=== PATIENT | male | born 1975 | race Caucasian/White ===

== ENCOUNTER 2017-08-16 19:05 | Emergency (ER) | payer BC ==
[2017-08-16] MEDS ORDERED: Lidocaine 1% 20 ML MDV INJECT ONE (19:29)
[2017-08-16] MEDS ORDERED: Diphtheria,Pertussis(Acell),Tetanus Vaccine 0.5 ML Syringe IM ONE (19:29)
[2017-08-16] MEDS ORDERED: Bacitracin Oint 1 GM U/D Packet TOP ONE (19:30)
--- NOTE | 2017-08-16 19:40 | EDM.PDOC ---
ED HPI GENERAL MEDICAL PROBLEM - General Chief Complaint: Laceration Stated Complaint: LACERATION RT MIDDLE FINGER Time Seen by Provider: 08/16/17 19:22 Source of Information: Reports: Patient History Limitations: Reports: No Limitations - History of Present Illness INITIAL COMMENTS - FREE TEXT/NARRATIVE: HISTORY AND PHYSICAL: History of present illness: Patient is a 42-year-old male who presents to the emergency room today with complaints of a laceration over the middle finger on the right hand across the MCP joint. States he was pulling a Nicho jar out of the garbage can when the glass broke, resulting in a laceration. Patient is able to grasp tightly but is unable to fully extend the affected finger. Bleeding is managed with light pressure. Unsure of last tetanus vaccine. Review of systems: As per history of present illness and below otherwise all systems reviewed and negative. Past medical history: As per history of present illness and as reviewed below otherwise noncontributory. Surgical history: As per history of present illness and as reviewed below otherwise noncontributory. Social history: No reported history of drug or alcohol abuse. Family history: As per history of present illness and as reviewed below otherwise noncontributory. Physical exam: Gen.: Well-developed and well-nourished 42-year-old male. Alert and oriented. Nontoxic and in no acute distress. HEENT: Atraumatic, normocephalic, pupils reactive, negative for conjunctival pallor or scleral icterus, mucous membranes moist, throat clear, neck supple, nontender, trachea midline. Lungs: Clear to auscultation, breath sounds equal bilaterally, chest nontender. Heart: S1S2, regular, negative for clicks, rubs, or JVD. Abdomen: Soft, nondistended, nontender. Negative for masses or hepatosplenomegaly. Negative for costovertebral tenderness. Pelvis: Stable nontender. Genitourinary: Deferred. Rectal: Deferred. Extremities: Moves all digits of the affected hand. Able to grasp tightly. Has limited extension of the right middle finger, does appear to have flexor tendon injury. Capillary refill less than 3 seconds. Sensation. Denies any numbness or tingling. Strong radial pulse.. Neurovascular unremarkable. Skin: 1.5 cm laceration across the MCP joint of the right third digit. Neuro: Awake, alert, oriented. Cranial nerves II through XII unremarkable. Cerebellum unremarkable. Motor and sensory unremarkable throughout. Exam nonfocal. Currently we do not have a hand surgeon on-call at our facility, will be available tomorrow. Dr. Oneill, hand surgeon, from [facility] in [place] was consulted. He was explained the patient's case and recommends that the wound be sutured closed. Recommends a cast extending from fingers past the wrist. Will place the patient on Keflex and given pain medication. Suggests close follow-up with Dr. Tabor tomorrow. He states he would be happy to see the patient if he is unable to get an appoint, at at a reasonable time. Area was thoroughly irrigated with sterile normal saline and cleansed with chlorhexidine. X-ray shows no foreign objects/glass in the wound. As appear to be tendon sheath laceration. The area was anesthetized with lidocaine 1% into the wound. 5 interrupted sutures were placed using 3-0 nylon. Patient tolerated well. Bacitracin and nonstick dressing applied. Short hand splint, fingertip to above the wrist, was placed. Wound care instructions provided, along with signs and symptoms that would prompt him to come back to the emergency room. For stronger pain medication. He states he'll be fine with Tylenol and/or ibuprofen. Informed patient he needs to call to set up an appointment tomorrow. Patient voices understanding and is agreeable to plan of care. Diagnostics: X-ray Therapeutics: Tdap, lidocaine, bacitracin dressing, splint Impression: Laceration involving the flexor tendon Plan: 1. Please keep the wound clean and dry. A splint has been applied to prevent further injury. 2. Please take the Keflex as prescribed to prevent infection. 3. Tylenol and/or ibuprofen as needed for pain management. Rest, ice, elevate the extremity. 4. As we discussed you need to follow-up with Dr. Bryanna Tabor in the next 1-2 days. If you're unable to get a timely appointment he may follow up with Dr. Flores at [facility] in [place]. He is also a hand surgeon that has agreed to see you. 5. Return to the ED as needed and as discussed. ` Definitive disposition and diagnosis as appropriate pending reevaluation and review of above. Onset: Today Duration: Minutes: Location: Reports: Upper Extremity, Right right middle finger Pain Score (Numeric/FACES): 3 - Related Data Allergies Allergy/AdvReac Type Severity Reaction Status Date / Time No Known Allergies Allergy Verified 08/16/17 19:21 Home Meds: Home Meds . [No Known Home Meds] 08/16/17 [History] Past Medical History - Past Health History Medical/Surgical History: Denies Medical/Surgical History Social & Family History - Family History Family Medical History: Noncontributory - Tobacco Use Smoking Status *Q: Never Smoker - Recreational Drug Use Recreational Drug Use: No ED ROS GENERAL - Review of Systems Review Of Systems: ROS reveals no pertinent complaints other than HPI. ED EXAM, SKIN/RASH Exam: See Below (See dictation) ED SKIN PROCEDURES - Laceration/Wound Repair Right Finger Lac/Wound length In cm: 1.5 Appearance: Clean Distal NVT: Other (Flexor tendon involvement) Anesthetic Type: Local Local Anesthesia - Lidocaine (Xylocaine): 1% Plain Local Anesthetic Volume: 4cc Skin Prep: Chlorhexidine (Hibiciens), Saline, Sterile Drape Saline Irrigation (cc's): 100 Exploration/Debridement/Repair: Wound Explored, Explored to Base, No Foreign Material Found Closed with: Sutures Suture Size: 3-0 # of Sutures: 5 Suture Type: Nylon Course - Vital Signs Last Recorded V/S: Last Vital Signs Temp 97.2 F 08/16/17 19:22 Pulse 74 08/16/17 19:22 Resp 18 08/16/17 19:22 BP 140/96 H 08/16/17 19:22 Pulse Ox 97 08/16/17 19:22 - Orders/Labs/Meds Orders: Active Orders 24 hr Category Date Time Status Vaccines to be Administered [RC] PER UNIT ROUTINE Care 08/16/17 19:30 Active Fingers Multiple Rt [CR] Stat Exams 08/16/17 19:32 Stop Req Fingers Third Digit Rt F7 [CR] Stat Exams 08/16/17 19:40 Taken Meds: Medications Discontinued Medications Generic Name Dose Route Start Last Admin Trade Name Freq PRN Reason Stop Dose Admin Bacitracin 1 dose 08/16/17 19:30 Bacitracin Oint 1 Gm TOP 08/16/17 19:31 ONETIME ONE Diphtheria/Tetanus/Acell Pertussis 0.5 ml 08/16/17 19:29 Adacel IM 08/16/17 19:30 .ONCE ONE Lidocaine HCl 20 ml 08/16/17 19:29 Xylocaine 1% INJECT 08/16/17 19:30 ONETIME ONE Departure - Departure Time of Disposition: 20:17 Disposition: Home, Self-Care 01 Clinical Impression: Flexor tendon laceration, finger, open wound Qualifiers: Encounter type: initial encounter Qualified Code(s): S56.129A - Laceration of flexor muscle, fascia and tendon of unspecified finger at forearm level, initial encounter; S61.209A - Unspecified open wound of unspecified finger without damage to nail, initial encounter; S61.209A - Unspecified open wound of unspecified finger without damage to nail, initial encounter - Discharge Information Referrals: Bryanna Tabor MD [Physician] - 1 Day (Flexor tendon laceration) Forms: ED Department Discharge Additional Instructions: My general discharge The following information is given to patients seen in the emergency department who are being discharged to home. This information is to outline your options for follow-up care. We provide all patients seen in our emergency department with a follow-up referral. The need for follow-up, as well as the timing and circumstances, are variable depending upon the specifics of your emergency department visit. If you don't have a primary care physician on staff, we will provide you with a referral. We always advise you to contact your personal physician following an emergency department visit to inform them of the circumstance of the visit and for follow-up with them and/or the need for any referrals to a consulting specialist. The emergency department will also refer you to a specialist when appropriate. This referral assures that you have the opportunity for follow-up care with a specialist. All of these measure are taken in an effort to provide you with optimal care, which includes your follow-up. Under all circumstances we always encourage you to contact your private physician who remains a resource for coordinating your care. When calling for follow-up care, please make the office aware that this follow-up is from your recent emergency room visit. If for any reason you are refused follow-up, please contact the [facility] Emergency Department at and asked to speak to the emergency department charge nurse. [facility] Specialty Care - Plastic Surgery Professional Building [address] [place] [address], [address] [place] [address] 1. Please keep the wound clean and dry. A splint has been applied to prevent further injury. 2. Please take the Keflex as prescribed to prevent infection. 3. Tylenol and/or ibuprofen as needed for pain management. Rest, ice, elevate the extremity. 4. As we discussed you need to follow-up with Dr. Bryanna Tabor in the next 1-2 days. If you're unable to get a timely appointment he may follow up with Dr. Flores at [facility] in [place]. He is also a hand surgeon that has agreed to see you. 5. Return to the ED as needed and as discussed. ` - My Orders Last 24 Hours: My Active Orders 08/16/17 19:30 Vaccines to be Administered [RC] PER UNIT ROUTINE 08/16/17 19:32 Fingers Multiple Rt [CR] Stat 08/16/17 19:40 Fingers Third Digit Rt F7 [CR] Stat - Assessment/Plan Last 24 Hours: My Active Orders 08/16/17 19:30 Vaccines to be Administered [RC] PER UNIT ROUTINE 08/16/17 19:32 Fingers Multiple Rt [CR] Stat 08/16/17 19:40 Fingers Third Digit Rt F7 [CR] Stat
--- NOTE | 2017-08-17 16:41 | CR ---
EXAM DATE: 08/16/17 PATIENT'S AGE: 42 Patient: ALEKSANDER JOHNSTON Facility: [place], [place] Site . Site : [id number] Study: XRay Extremity Right R finger [id number] 8:00:25 PM Ordering Physician: Doctor Cheung Final Report: INDICATION: Laceration injury to 3rd digit, glass jar TECHNIQUE: Finger radiographs 3 views COMPARISON: None FINDINGS: Bones: Alignment is normal. No acute fractures or aggressive bone lesions are identified. Joint spaces: The metacarpophalangeal and interphalangeal joints are normal in appearance. Soft tissues: Unremarkable. No radiopaque foreign bodies are noted. IMPRESSION: 1. No acute osseous injuries are identified. No radiopaque soft tissue foreign body identified. Dictated by Hilton Dunlap MD @ 08/16/2017 8:33:43 PM Dictated by: Hilton Dunlap MD @ 08/16/2017 20:34:16 (Electronic Signature) Report Signed by Proxy. [facility]
== END 2017-08-16 20:45 | disposition home or self-care (01) ==
LOC: MW.ED 19:05
DX: S66.122A Laceration of flexor muscle, fascia and tendon of right middle finger at wrist and hand level, initial encounter (principal); W25.XXXA Contact with sharp glass, initial encounter; Z23 Encounter for immunization
CPT/HCPCS: 12001; 73140-26-F7; 73140-F7; 90471; 90715; 99283-25; 99284

== ENCOUNTER 2024-01-04 09:12 | Emergency (ER) | payer BC ==
[2024-01-04 09:35] LABS: BASOPHILS ABSOLUTE AUTO 0.04 K/uL (0.00-0.20); BASOPHILS PERCENT AUTO 0.5 % (0.0-1.0); EOSINOPHILS ABSOLUTE AUTO 0.06 K/uL (0.00-0.45); EOSINOPHILS PERCENT AUTO 0.7 % (0.0-6.0); HEMATOCRIT 48.1 % (42.0-52.0); HEMOGLOBIN 16.5 g/dL (14.0-18.0); IMMATURE GRAN ABSOLUTE AUTO 0.02 K/uL (0.00-0.05); IMMATURE GRAN PERCENT AUTO 0.2 % (0.0-0.4); LYMPHOCYTES ABSOLUTE AUTO 2.75 K/uL (1.00-4.80); LYMPHOCYTES PERCENT AUTO 31.2 % (24.0-44.0); MEAN CORPUSCULAR HGB CONC 34.3 g/dL (32.0-36.0); MEAN CORPUSCULAR VOLUME 78.7 fL (83.0-99.0); MEAN PLATELET VOLUME 9.1 fL (9.4-12.4); MONOCYTES ABSOLUTE AUTO 0.59 K/uL (0.00-0.80); MONOCYTES PERCENT AUTO 6.7 % (0.0-8.0); NEUTROPHILS ABSOLUTE AUTO 5.35 K/uL (1.80-7.70); NEUTROPHILS PERCENT AUTO 60.7 % (41.0-71.0); PLATELET COUNT,PLT 261 K/uL (150-400); RED BLOOD CELL COUNT 6.11 M/uL (4.52-5.90); WHITE BLOOD CELL COUNT,WBC 8.81 K/uL (3.9-11.3)
[2024-01-04] MEDS: Sodium Chloride 0.9% 10 ML Syringe FLUSH PRN (09:39)
[2024-01-04] MEDS: Sodium Chloride 0.9% 2.5 ML Syringe FLUSH PRN (09:40)
[2024-01-04 10:07] LABS: A/G RATIO 1.1 (0.9-1.6); ALANINE AMINOTRANSFERASE,ALT 44 IU/L (14-63); ALBUMIN 4.1 g/dL (3.4-5.0); ALKALINE PHOSPHATASE 63 U/L (46-116); ASPARTATE AMNIOTRANSFERASE,AST 37 IU/L (15-37); BILIRUBIN TOTAL 0.7 mg/dL (0.2-1.0); BLOOD UREA NITROGEN,BUN 13 mg/dL (7.0-18.0); CALCIUM 8.9 mg/dL (8.5-10.1); CARBON DIOXIDE,CO2 25.9 mmol/L (21.0-32.0); CHLORIDE,CL 100 mmol/L (98-107); CREATINE KINASE,CK 975 U/L (26-308); CREATININE 1.3 mg/dL (0.8-1.3); EST CRCL DRUG DOSING (CG) 75.62 mL/min; ETHANOL BLOOD MEDICAL <3 mg/dL; GLUCOSE RANDOM 107 mg/dL (74-106); LIPASE 26 U/L (16-77); POTASSIUM,K 4.1 mmol/L (3.5-5.1); PROTEIN TOTAL,TP 7.8 g/dL (6.4-8.2); SODIUM,NA 137 mmol/L (136-148); TSH ULTRASENSITIVE 1.58 uIU/mL (0.36-3.74)
[2024-01-04 10:09] LABS: ESTIMATED GFR 69 mL/min (>60)
[2024-01-04 10:21] LABS: LACTIC ACID 1.1 mmol/L (0.4-2.0)
[2024-01-04 10:32] LABS: CORONAVIRUS COVID-19 NAA NEGATIVE (NEGATIVE); INFLUENZA A NAA NEGATIVE (NEGATIVE); INFLUENZA B NAA NEGATIVE (NEGATIVE); RESPIRATORY SYNCYTIAL VIR NAA NEGATIVE (NEGATIVE)
[2024-01-04] MEDS: Iopamidol 755 MG/ML 500 ML Multipack Bottle IVPUSH STA (11:11)
[2024-01-04 12:03] LABS: APPEARANCE,URINE CLEAR; BILIRUBIN,URINE NEGATIVE (NEGATIVE); COLOR,URINE YELLOW; GLUCOSE,URINE NEGATIVE (NEGATIVE); KETONES,URINE NEGATIVE (NEGATIVE); LEUKOCYTE ESTERASE,URINE NEGATIVE (NEGATIVE); NITRITE,URINE NEGATIVE (NEGATIVE); OCCULT BLOOD,URINE NEGATIVE (NEGATIVE); PROTEIN,URINE NEGATIVE (NEGATIVE); UROBILINOGEN,URINE 0.2 EU/dL (<2.0)
[2024-01-04 12:10] LABS: AMPHETAMINES SCREEN, URINE NEGATIVE (CUTOFF=500); BARBITURATE SCREEN,URINE NEGATIVE (CUTOFF=200); BENZODIAZEPINES SCREEN,URINE NEGATIVE (CUTOFF=150); BUPRENORPHINE SCREEN,URINE NEGATIVE (CUTOFF=10); METHADONE SCREEN, URINE NEGATIVE (CUTOFF=200); METHAMPHETAMINES SCREEN, URINE NEGATIVE (CUTOFF=500); OXYCODONE SCREEN,URINE NEGATIVE (CUT0FF=100); PCP SCREEN,URINE NEGATIVE (CUTOFF=25); THC SCREEN,URINE 20 NG/ML NEGATIVE (CUTOFF=50)
== END 2024-01-04 14:10 ==
LOC: MW.ED 09:12
DX: R53.1 Weakness (principal)
CPT/HCPCS: 0241U; 36415; 70450; 70496; 70498; 71045; 72129; 72132; 80053; 80305; 80307; 81003; 82550; 82947; 83605; 83690; 84443; 84484; 85025; 85652; 93005; 99285; J3490; Q9967; 93010